=== PATIENT | female | born 1990 | race American Indian/Alaskan Native ===

== ENCOUNTER 2018-12-12 23:03 | Emergency (ER) | payer OTHER ==
[2018-12-12 23:20] VITALS: BMI 38.9
--- NOTE | 2018-12-13 08:12 | OBDCSUM ---
Datetime: 12/13/2018 00:12 Discharged to, Provider: Home Follow up at, Provider: Tanika Lizarraga Disch Instr Activity: Normal activity Disch Instr Diet: Regular Discharge Diagnosis, Provider: False Labor - Undelivered Discharge Time: 12/13/2018 00:20 Follow up in weeks, Provider: 12/14/18 Disch Referrals: None
--- NOTE | 2018-12-13 08:12 | OBHP ---
Datetime: 12/13/2018 00:04 IP Adm Impression: Term, intrauterine ; No Active Labor IP Admit Plan: Observation/Evaluation; Discharge home Admit Comment, IP Provider: 28 y/o , 39.4 wks based on LMP with CECILIA of 12/15/18 presents to [place] with leaking of fluids. Patient noticed gush of fluid coming out at 8:30 Pm tonight. Reports irregula r CTx since 36 wks. Denies VB. Reports feeling good FM. Denies dysuria, F/C/N/V/D. care: [place] [facility], Plans to deliver at [facility] in [place]. course: thyrombocytopenia in , Taking progesterone for cervical shortning, Last US at 37 wks showed 3.9 cm cervical length. Last CBC PLT 109 on 11/24, HIV Nrg, RPR NR, GBS Negative PMHx: Denies PSHx: Denies Allergies: Ibuprofen Anaphylexis, Mushroom Hives Medications: Metrogel, PNVs F/H noncontributory Social: Denies etoh/smoking/drug use, Denies any abuse. OBHx: , 4 x , Last 2 H/O thrombocytopenia VSS PE: GEN: NAD Chest: RRR, S1S2 present Lungs: CTAB Abdomen: Gravid, NT SSE: Negative pooling, Negative ferning, No VB SVE: 2 cm/0%/High Bedside US: Vertex, JUSTUS 9 cm A/P: 28 y/o , 39.4 wks based on LMP with CECILIA of 12/15/18 presents with suspected ROM - SSE: Negative pooling, Negative ferning, No VB - SVE: 2 cm/0%/High - Bedside US: Vertex, JUSTUS 9 cm - NST reactive + Aceels, No decels, Moderate variability - Irregular CTx - Patient to be discharged home and follow up with [facility] as scheduled. OB Hospitalist on-call. With PGY1, I saw, examined and did ultrasound on this pt. Agree with note CHER...No records provided but pt showed labs from a web portal. Labor instructions and pre-eclam psia warning given Pelvic Type - PN: Not Done Extremities - PN: Normal Abdomen - PN: Normal Back - PN: Not Done Breast - PN: Not Done Lungs - PN: Normal Heart - PN: Normal Thyroid - PN: Normal Neurologic - PN: Normal HEENT - PN: Normal General - PN: Normal Presentation-Admit: Vertex FHR - Baseline A Provider: 150 Membranes, Provider: Intact Contraction Comments Provider: Irregular Comments, ACOG Physical Exam: VSS PE: GEN: NAD Chest: RRR, S1S2 present Lungs: CTAB Abdomen: Gravid, NT SSE: Negative pooling, Negative ferning, No VB SVE: 2 cm/0%/High Bedside US: Vertex, JUSTUS 9 cm Pool Provider: Negative Ferning Provider: Negative Vital Signs Provider: Reviewed; Within Normal Limits IP Chief Complaint: Uterine contractions; Suspected ruptured membranes NICHD Variability Prov Fetus A: Moderate 6-25bpm NICHD Accel Fetus A IP Provider: [id number] FHR Category Provider Fetus A: Category I NICHD Decel Fetus A IP Provider: None Dilatation, Provider: 2 Effacement, Provider: 0 Station, Provider: high Genitourinary Exam: Normal DTRs - PN: Not Done
--- NOTE | 2018-12-13 08:14 | OBHP ---
Datetime: 12/13/2018 08:11 Admit Comment, IP Provider: Addendum to note at 12:00am. She has PNC with [place] [employer]. S he has follow up appt. She is planning on delivering at a [facility] in [place]. She just mov ed to [place] form [place] an works in the [employer] ([employer]). She was advised to obtain prenata l records from her providers if she is going to deliver in [place]
[2018-12-13 08:59] VITALS: BP 121/80; PULSE 95; RESP 18; TEMP 98.1; O2SAT 99
== END 2018-12-13 00:20 | disposition home or self-care (01) ==
LOC: H.EROB2 23:03
DX: O34.63 Maternal care for abnormality of vagina, third trimester (principal); N89.8 Other specified noninflammatory disorders of vagina; O48.0 Post-term pregnancy; Z3A.40 40 weeks gestation of pregnancy

== ENCOUNTER 2018-12-14 12:39 | Inpatient (IN) | payer SELFPAY ==
[2018-12-14] MEDS ORDERED: Lactated Ringer's 1,000 ML IV ONE (13:00)
[2018-12-14] MEDS ORDERED: Lactated Ringer's 1,000 ML IV SCH (13:00)
[2018-12-14] MEDS ORDERED: Fentanyl/Bupivacaine HCl 250 ML EPI ONE (13:29)
[2018-12-14] MEDS ORDERED: Oxytocin 30 UNIT 30 UNITS/500 ML BAG IV ONE (14:23)
[2018-12-14] MEDS ORDERED: OXYTOCIN/0.9 % NS 20 UNIT/1,000 ML BAG IV ONE (14:23)
[2018-12-14 14:33] LABS: BASO % 0.3 % (0.0-2.0); EOS % 0.7 % (0.0-4.0); HEMOGLOBIN 11.7 g/dL (12.0-16.0); LYMPH # 1.1 K/uL (1.0-4.3); LYMPH % 23.5 % (20.0-40.0); MEAN CELL VOLUME 95.6 fl (81.0-99.0); MEAN CORPUSCULAR HEMOGLOBIN 32.5 pg (27.0-31.0); MEAN PLATELET VOLUME 10.8 fl (7.2-11.7); MONO # 0.4 K/uL (0.0-0.8); MONO % 8.4 % (0.0-10.0); NEUT # 3.1 K/uL (1.8-7.0); NEUT % 67.1 % (50.0-75.0); NRBC % 0.1 % (0.0-0.0); RBC 3.59 Mil/uL (3.80-5.20); RED CELL DISTRIBUTION WIDTH 14.4 % (11.5-14.5); WHITE BLOOD COUNT 4.6 K/uL (4.8-10.8)
[2018-12-15] MEDS ORDERED: Oxytocin 30 UNIT 30 UNITS/500 ML BAG IV ONE (02:00)
--- NOTE | 2018-12-15 08:23 | OBADHP ---
Datetime: 12/14/2018 13:19 Admit Comment, IP Provider: 28 y/o female 39.6 wks based on LMP with CECILIA of 12/15/18 presents to [place] with painful contractions every 4-5 minutes. She denies VFL, VB. She endorses movement . Denies dysuria, F/C/N/V/D. care: [facility] course: thyrombocytopenia in , Taking progesterone for cervical shortning, Last US at 37 wks showed 3.9 cm cervical length. Last CBC PLT 110 PMHx: Denies PSHx: Denies Allergies: Ibuprofen Anaphylexis, Mushroom Hives Medications: Metrogel, PNVs F/H noncontributory Social: Denies etoh/smoking/drug use, Denies any abuse. OBHx: , 4 x , Last 2 H/O thrombocytopenia VSS PE: uncomfortable Chest: RRR, S1S2 present Lungs: CTAB Abdomen: Gravid, NT SVE: (chaperoned by Nurse Paola) 4 cm/thick/posterior Assessment and Plan 28 y/o female EGA 39.6 IUP Patient does not have labs/records w/ her SVE: 4 cm/0%/High NST reactive + Aceels, No decels, Moderate variability CTx Q4-5 mins Admit Patient to unit CBC, type and screen Rapid HIV, RPR, HBsAg, Rubella IGG 1L LR IV bouls 1L LR IV 125mL/hr NPO Can have epidural, anesthesiology consulted Case discussed w/ attending, Dr. Kelly Steven, pgyi Extremities - PN: Normal Abdomen - PN: Normal Back - PN: Not Done Breast - PN: Not Done Lungs - PN: Normal Heart - PN: Normal Thyroid - PN: Not Done Neurologic - PN: Not Done HEENT - PN: Not Done FHR - Baseline A Provider: 150 Contraction Comments Provider: Q4-5 mins Gestation - Est Wks by US: 39.6 Vital Signs Provider: Reviewed NICHD Variability Prov Fetus A: Moderate 6-25bpm NICHD Accel Fetus A IP Provider: [id number] NICHD Decel Fetus A IP Provider: None Dilatation, Provider: 4cm Effacement, Provider: thick Station, Provider: high Genitourinary Exam: Not Done DTRs - PN: Not Done IP Adm Impression: Term, intrauterine ; Active labor IP Admit Plan: Admit to unit Datetime: 12/14/2018 12:45 Pelvic Type - PN: Adequate General - PN: Normal IP Chief Complaint: Uterine contractions FHR Category Provider Fetus A: Category I Datetime: 12/13/2018 00:04 Presentation-Admit: Vertex Membranes, Provider: Intact Comments, ACOG Physical Exam: VSS PE: GEN: NAD Chest: RRR, S1S2 present Lungs: CTAB Abdomen: Gravid, NT SSE: Negative pooling, Negative ferning, No VB SVE: 2 cm/0%/High Bedside US: Vertex, JUSTUS 9 cm Pool Provider: Negative Ferning Provider: Negative
--- NOTE | 2018-12-15 08:28 | OBDS ---
MATERNAL INFORMATION Provider Comments: Pt delivered viable male with apgars 9/9. LUIS position. Placenta delivered spont. LUIS po sition. Loose nuchal cord x 1 reduced. Uterus firm and approp hemostatic following delivery. No co mplications. Pt tolerated well. EBL 200cc. LABOR SUMMARY EDC: 12/15/2018 00:00 No. Babies in Womb: 0 LABOR INFORMATION Group B Beta Strep: Negative MEMBRANES Amniotic Fluid Amount: None VAGINAL DELIVERY Episiotomy: None Laceration Extension: N/A Laceration Type: None Laceration Repair: Not Applicable
[2018-12-15] MEDS ORDERED: Benzocaine/Menthol SPRAY TOP PRN ×2 (09:16→15:06)
[2018-12-15] MEDS ORDERED: Oxycodone/Acetaminophen 5/325 mg Tab PO PRN ×4 (09:16→15:06)
[2018-12-17] MEDS ORDERED: Prenatal Multivit/Folic Acid/Iron Tab PO SCH (09:00)
[2018-12-17 18:30] VITALS: BP 136/93; PULSE 77; RESP 20; TEMP 98.6; O2SAT 99
== END 2018-12-17 13:30 | disposition home or self-care (01) | DRG 807 ==
LOC: H.EROB2 12:39 → H.L&D 13:00 → H.OB/GYN 12-15 12:11
PROVIDERS: ADMIT Obstetrics & Gynecology; ATTEND Obstetrics & Gynecology
PROC: 10E0XZZ Delivery of Products of Conception, External Approach (ICD-10-PCS; principal; 2018-12-14)
PROC: 4A1HXCZ Monitoring of Products of Conception, Cardiac Rate, External Approach (ICD-10-PCS; 2018-12-14)
DX: O69.81X0 Labor and delivery complicated by cord around neck, without compression, not applicable or unspecified (principal); Z37.0 Single live birth; Z3A.39 39 weeks gestation of pregnancy